=== PATIENT | male | born 1960 | race Caucasian/White ===

== ENCOUNTER 2017-04-21 17:26 | Emergency (ER) | payer BC, OTHER ==
--- NOTE | 2017-04-21 17:36 | CPEKG ---
Heart Rate: 87 RR Interval: 690 P-R Interval: 152 QRSD Interval: 72 QT Interval: 348 QTC Interval: 419 P [place]: 47 QRS [place]: -17 T Wave [place]: 4 EKG Severity - ABNORMAL ECG - EKG Impression: SINUS RHYTHM EKG Impression: PROBABLE INFERIOR INFARCT, AGE INDETERMINATE Electronically Signed By: Rohini Moody 21-Apr-2017 21:57:38
[2017-04-21] MEDS ORDERED: ASPIRIN 81 MG CHEWABLE TAB PO ONE (17:39)
[2017-04-21] MEDS ORDERED: NITROGLYCERIN 0.4 MG BTL SL ONE ×4 (17:40→22:05)
[2017-04-21 18:05] LABS: % IMMATURE GRANULYOCYTES 1.1 % (0.0-1.1); ABSOLUTE IMMATURE GRANULOCYTES 0.15 10^3/uL (0.00-0.10); ADD DIFF? NO; ADD MORPH? NO; ADD SCAN? NO; ATYPICAL LYMPHOCYTE FLAG 0 (0-99); FRAGMENT RBC FLAG 0 (0-99); HEMATOCRIT 45.5 % (40.0-51.0); HEMOGLOBIN 15.3 g/dL (13.7-17.5); LEFT SHIFT FLG 0 (0-99); LIPEMIA HEMOLYSIS FLAG 80 (0-99); MEAN CELL HEMOGLOBIN 29.9 pg (27.9-34.1); MEAN CELL HEMOGLOBIN CONCENTR. 33.6 g/dL (32.4-36.7); MEAN CELL VOLUME 88.9 fL (81.5-99.8); MEAN PLATELET VOLUME 9.7 fL (8.7-11.7); PLATELET CLUMPS FLAG 0 (0-99); PLATELET COUNT 155 10^3/uL (150-400); RED BLOOD CELL COUNT 5.12 10^6/uL (4.40-6.38)
[2017-04-21 18:09] LABS: PROTIME(PATIENT) 12.9 SEC (12.0-15.0)
[2017-04-21 18:10] LABS: APTT 33.7 SEC (23.0-38.0)
[2017-04-21 18:13] LABS: ALANINE AMINOTRANSFERASE 43 IU/L (21-72); ALBUMIN 4.2 g/dL (3.5-5.0); ALKALINE PHOSPHATASE 93 IU/L (38-126); ANION GAP 11 mEq/L (8-16); ASPARTATE AMINOTRANSFERASE 32 IU/L (17-59); BILIRUBIN,TOTAL 0.5 mg/dL (0.1-1.4); BILIRUBIN-CONJUGATED 0.3 mg/dL (0.0-0.5); BILIRUBIN-UNCONJUGATED 0.2 mg/dL (0.0-1.1); CALCIUM 8.9 mg/dL (8.5-10.4); CARBON DIOXIDE 27 mEq/l (22-31); CHLORIDE 101 mEq/L (97-110); CREATININE 0.8 mg/dL (0.7-1.3); GLOMERULAR FILTRATION RATE > 60; GLUCOSE 94 mg/dL (70-100); POTASSIUM 4.6 mEq/L (3.5-5.2); SODIUM 139 mEq/L (134-144); TOTAL PROTEIN 7.2 g/dL (6.3-8.2)
--- NOTE | 2017-04-21 18:26 | EDPHY ---
H & P Stated Complaint: CHEST PAIN STARTED 4 HOURS BIT BENDER WITH SOB Time Seen by Provider: 04/21/17 17:35 HPI/ROS: CHIEF COMPLAINT: Chest pain History by patient HISTORY OF PRESENT ILLNESS: 56-year-old man with a history of hypertension and chronic back pain presents complaining of acute onset of chest pain and shortness of breath which began about 4 hours prior while he was in the car going to see his pain doctor. He has never had anything like this before. He describes the pain as achy, pressure-like. It is not associated with any nausea vomiting or diaphoresis. Pain is also somewhat pleuritic in nature. He denies any recent illness. He tried taking a Percocet and ibuprofen without any relief. Patient's cardiac stress factors are notable for his age, hypertension, he has no history of diabetes and his cholesterol is unknown. He has never smoked. REVIEW OF SYSTEMS: As in HPI, and all other systems reviewed and are negative Source: Patient, Family - Medical/Surgical History Other PMH: HTN, CHRONIC BACK PAIN - Social History Smoking Status: Never smoked - Physical Exam Exam: General Appearance: Alert, pale, anxious appearing. Eyes: Pupils equal and round no pallor or injection. ENT, Mouth: Mucous membranes moist. Respiratory: Normal, effort, There are no retractions, lungs are clear to auscultation. Cardiovascular: Regular rate and rhythm. S1, S2, no murmurs, gallops, rubs appreciated Gastrointestinal: Abdomen is soft and nontender, no masses, bowel sounds normal. Neurological: Awake, alert and oriented x 3, no pronator drift, normal gait, no pronator drift Skin: Warm and dry, no rashes. Musculoskeletal: Neck is supple nontender. Extremities are symmetrical, full range of motion. No edema, DP pulses and PT pulses are 2+ and equal bilaterally Psychiatric: Patient has normal affect, there is no agitation. Constitutional: Initial Vital Signs Temperature (C) 36.8 C 04/21/17 17:30 Heart Rate 90 04/21/17 17:30 Respiratory Rate 24 H 04/21/17 17:30 Blood Pressure 145/100 H 04/21/17 17:30 O2 Sat (%) 92 04/21/17 17:30 O2 Delivery Mode Nasal Cannula Allergies/Adverse Reactions: lorazepam [From Ativan] Allergy (Verified 04/21/17 17:39) Home Medications: Medication Instructions Recorded Ambalex 04/21/17 Herbal Male Enhancement Drug 04/21/17 Lisinopril 04/21/17 Percocet 5/325 (*) 04/21/17 Medical Decision Making - Diagnostics EKG Interpretation: Normal sinus rhythm at a rate in the 90s with normal axis, normal intervals and no ST segment abnormalities. Impression: No acute ischemia Imaging Results: Imaging Impressions Chest X-Ray 04/21/17 18:01 Impression: Possible mild early congestive heart failure. Mild bronchitis or early pulmonary edema. Chest/Thorax CTA 04/21/17 19:09 Impression: 1. No evidence of thrombopulmonary embolic disease. 2. Probable hepatic cysts at the dome of the liver. Correlation with ultrasound might be useful. Results called and discussed with Rohini Moody MD at 04/21/2017 19:46. ED Course/Re-evaluation: 56-year-old male with history of hypertension presents complaining of pressure- like chest pain and shortness of breath. Initial ECG showed no evidence of acute ischemia, but did show Q-waves in the inferior leads. Patient's symptoms are concerning for cardiac angina. He was given an oral aspirin and nitroglycerin with resolution of shortness of breath but persistent of chest tightness. He was given 2 more nitroglycerin with significant improvement in the chest pain and improvement in his blood pressure. He was then given a dose of IV fentanyl with resolution of the chest pain. Patient with noted have a low oxygen saturation in the high 80s on room air and he was placed on 2 L of oxygen improvement into the 90s. Chest x-ray was concerning for mild CHF. First troponin was negative. D-dimer was positive. Because of his symptoms and low oxygen is positive D-dimer, I was concerned about pulmonary embolism and CT angiogram of the chest was obtained which was read as no evidence of pulmonary embolism, aortic dissection or other acute chest pathology. The rest the patient's labs were unremarkable. He remained in normal sinus rhythm on the monitor. ECG was repeated when he was pain free which showed no further changes. I was concerned about cardiac angina because the patient's risk factors, EKG and symptoms although there is no evidence for acute OH at this time. There were no inpatient beds available at [facility]. Patient therefore requested transfer to a [facility]. I discussed the case with Dr. Bhakta, conditioning room worker hospitalist there who accepts the patient in transfer. Critical Care Time: Total critical care time was 35 minutes, exclusive of procedures which included actively managing patient's chest pain concerning for cardiac etiology and multiple re-evaluations. - Data Points Laboratory Results: Laboratory Results 04/21/17 Unknown 04/21/17 Unknown 04/21/17 04/21/17 04/21/17 Unknown Unknown Unknown WBC RBC Hgb Hct MCV MCH MCHC RDW Plt Count MPV Neut % (Auto) Lymph % (Auto) Baldwin % (Auto) Eos % (Auto) Baso % (Auto) Nucleat RBC Rel Count Absolute Neuts (auto) Absolute Lymphs (auto) Absolute Monos (auto) Absolute Eos (auto) Absolute Basos (auto) Absolute Nucleated RBC Immature Gran % Immature Gran # PT 12.9 SEC SEC (12.0-15.0) INR 1.00 (0.83-1.16) APTT 33.7 SEC SEC (23.0-38.0) D-Dimer 0.60 ug/mLFEU H ug/mLFEU (0.00-0.50) Sodium 139 mEq/L mEq/L (134-144) Potassium 4.6 mEq/L mEq/L (3.5-5.2) Chloride 101 mEq/L mEq/L (97-110) Carbon Dioxide 27 mEq/l mEq/l (22-31) Anion Gap 11 mEq/L mEq/L (8-16) BUN 27 mg/dL H mg/dL (7-23) Creatinine 0.8 mg/dL mg/dL (0.7-1.3) Estimated GFR > 60 Glucose 94 mg/dL mg/dL (70-100) Calcium 8.9 mg/dL mg/dL (8.5-10.4) Magnesium 2.0 mg/dL mg/dL (1.6-2.3) Total Bilirubin 0.5 mg/dL mg/dL (0.1-1.4) Conjugated Bilirubin 0.3 mg/dL mg/dL (0.0-0.5) Unconjugated Bilirubin 0.2 mg/dL mg/dL (0.0-1.1) AST 32 IU/L IU/L (17-59) ALT 43 IU/L IU/L (21-72) Alkaline Phosphatase 93 IU/L IU/L (38-126) Troponin I < 0.012 ng/mL ng/mL (0-0.034) NT-Pro-B Natriuret Pep 15 pg/mL pg/mL (0-125) Total Protein 7.2 g/dL g/dL (6.3-8.2) Albumin 4.2 g/dL g/dL (3.5-5.0) 04/21/17 Unknown WBC 13.86 10^3/uL H 10^3/uL (3.80-9.50) RBC 5.12 10^6/uL 10^6/uL (4.40-6.38) Hgb 15.3 g/dL g/dL (13.7-17.5) Hct 45.5 % % (40.0-51.0) MCV 88.9 fL fL (81.5-99.8) MCH 29.9 pg pg (27.9-34.1) MCHC 33.6 g/dL g/dL (32.4-36.7) RDW 14.0 % % (11.5-15.2) Plt Count 155 10^3/uL 10^3/uL (150-400) MPV 9.7 fL fL (8.7-11.7) Neut % (Auto) 70.5 % % (39.3-74.2) Lymph % (Auto) 17.3 % % (15.0-45.0) Baldwin % (Auto) 9.8 % % (4.5-13.0) Eos % (Auto) 0.7 % % (0.6-7.6) Baso % (Auto) 0.6 % % (0.3-1.7) Nucleat RBC Rel Count 0.0 % % (0.0-0.2) Absolute Neuts (auto) 9.77 10^3/uL H 10^3/uL (1.70-6.50) Absolute Lymphs (auto) 2.40 10^3/uL 10^3/uL (1.00-3.00) Absolute Monos (auto) 1.36 10^3/uL H 10^3/uL (0.30-0.80) Absolute Eos (auto) 0.10 10^3/uL 10^3/uL (0.03-0.40) Absolute Basos (auto) 0.08 10^3/uL 10^3/uL (0.02-0.10) Absolute Nucleated RBC 0.00 10^3/uL 10^3/uL (0-0.01) Immature Gran % 1.1 % % (0.0-1.1) Immature Gran # 0.15 10^3/uL H 10^3/uL (0.00-0.10) PT INR APTT D-Dimer Sodium Potassium Chloride Carbon Dioxide Anion Gap BUN Creatinine Estimated GFR Glucose Calcium Magnesium Total Bilirubin Conjugated Bilirubin Unconjugated Bilirubin AST ALT Alkaline Phosphatase Troponin I NT-Pro-B Natriuret Pep Total Protein Albumin Medications Given: Discontinued Medications Aspirin (Aspirin) 324 mg PO EDNOW ONE Stop: 04/21/17 17:40 Last Admin: 04/21/17 17:43 Dose: 324 mg Fentanyl (Sublimaze) 50 mcg IVP EDNOW ONE Stop: 04/21/17 18:40 Last Admin: 04/21/17 18:55 Dose: 50 mcg Fentanyl (Sublimaze) 50 mcg IVP EDNOW ONE Stop: 04/21/17 21:29 Last Admin: 04/21/17 21:35 Dose: 50 mcg Nitroglycerin (Nitrostat) 0.4 mg SL EDNOW ONE Stop: 04/21/17 17:41 Last Admin: 04/21/17 17:44 Dose: 0.4 mg Nitroglycerin (Nitrostat) 0.4 mg SL EDNOW ONE Stop: 04/21/17 18:01 Last Admin: 04/21/17 18:00 Dose: 0.4 mg Nitroglycerin (Nitrostat) 0.4 mg SL EDNOW ONE Stop: 04/21/17 18:08 Last Admin: 04/21/17 18:07 Dose: 0.4 mg Departure - Departure Disposition: Acute Care Hospital Not [facility] Clinical Impression: Hypoxia, Elevated systolic blood pressure reading with diagnosis of hypertension Chest pain Qualifiers: Chest pain type: unspecified Qualified Code(s): R07.9 - Chest pain, unspecified Clinical Impression: (Ruled Out): Hypertension Condition: Fair Referrals: Meggan Way MD [Primary Care Provider] - As per Instructions
[2017-04-21] MEDS ORDERED: fentaNYL 100 MCG/2 ML INJ IVP ONE ×3 (18:39→22:06)
--- NOTE | 2017-04-21 19:11 | CPEKG ---
Heart Rate: 87 RR Interval: 690 P-R Interval: 156 QRSD Interval: 70 QT Interval: 360 QTC Interval: 433 P [place]: 38 QRS [place]: -15 T Wave [place]: -5 EKG Severity - ABNORMAL ECG - EKG Impression: SINUS RHYTHM EKG Impression: PROBABLE INFERIOR INFARCT, AGE INDETERMINATE Electronically Signed By: Rohini Moody 21-Apr-2017 21:57:30
[2017-04-21] MEDS ORDERED: IOPAMIDOL (ISOVUE 370) 100 ML BTL IV ONE (19:14)
[2017-04-21 23:01] VITALS: BP 126/87; PULSE 96; RESP 16; TEMP 98.4; O2SAT 95
== END 2017-04-21 22:10 | disposition short-term general hospital (02) ==
LOC: CED 17:26
DX: R07.9 Chest pain, unspecified (principal); R09.02 Hypoxemia; I10 Essential (primary) hypertension
CPT/HCPCS: 71010-PO; 71275-PO; 80048-PO; 80076-PO; 83735-PO; 83880-PO; 84484-PO; 85025-PO; 85378-PO; 85610-PO; 85730-PO; J3010; Q9967